=== PATIENT | male | born 1975 | race Caucasian/White ===

== ENCOUNTER 2020-08-24 18:48 | Inpatient (IN) | payer SELFPAY ==
[~2020-08-24] VITALS: Ht 175.3 cm; Wt 167.8 kg
[2020-08-24 19:55] LABS: BASOPHIL % 0.4 % (0.2-1.5); PLATELET COUNT 259 x10^3mcL (152-348); RED CELL DISTRIBUTION WIDTH 14.5 % (12.1-16.2)
[2020-08-24 20:25] LABS: CALCIUM 7.5 mg/dL (8.5-10.1); CARBON DIOXIDE 25.8 mmol/L (21-32); CREATININE SERUM 1.5 mg/dL (0.7-1.3); POTASSIUM SERUM 3.9 mmol/L (3.5-5.1)
[2020-08-24 20:31] LABS: BILIRUBIN TOTAL 0.6 mg/dL (0.20-1.00); TOTAL PROTEIN, SERUM 7.2 g/dL (6.4-8.2)
[2020-08-24 20:34] LABS: ALBUMIN 2.6 g/dL (3.4-5.0)
[2020-08-24 21:16] LABS: microscopic required? YES; urine erythrocyte TRACE (NEGATIVE)
[2020-08-25 09:38] LABS: C REACTIVE PROTEIN 15.8 mg/dL (<=0.9)
[2020-08-25 12:58] LABS: PHOSPHOROUS 2.4 mg/dL (2.5-4.9)
[2020-08-25 13:08] LABS: CHOLESTEROL/HDL RATIO 3.8
[2020-08-25 13:38] LABS: FREE T4 1.11 ng/dL (0.76-1.46)
[2020-08-25 14:14] LABS: T3 TOTAL 1.96 ng/mL
[2020-08-25 15:55] VITALS: BP 122/79
[2020-08-25 16:46] VITALS: BP 136/74
[2020-08-25 21:45] VITALS: BP 126/69
[2020-08-26 06:01] VITALS: BP 118/77
[2020-08-26 07:06] LABS: BASOPHIL % 0.4 % (0.2-1.5); PLATELET COUNT 302 x10^3mcL (152-348)
[2020-08-26 07:09] VITALS: Ht 175.3 cm; Wt 167.8 kg
[2020-08-26 07:13] LABS: RED CELL DISTRIBUTION WIDTH 14.6 % (12.1-16.2)
[2020-08-26 07:20] LABS: CALCIUM 8.1 mg/dL (8.5-10.1); CARBON DIOXIDE 27.2 mmol/L (21-32); CREATININE SERUM 1.8 mg/dL (0.7-1.3); POTASSIUM SERUM 4.6 mmol/L (3.5-5.1)
[2020-08-26 09:27] VITALS: BP 132/85
[2020-08-26 12:01] VITALS: BP 134/66
[2020-08-26 17:28] VITALS: BP 103/67
[2020-08-26 21:02] VITALS: BP 138/70
[2020-08-27 04:56] VITALS: BP 136/73
[2020-08-27 07:58] LABS: BASOPHIL % 0.2 % (0.2-1.5); PLATELET COUNT 276 x10^3mcL (152-348); RED CELL DISTRIBUTION WIDTH 14.5 % (12.1-16.2)
[2020-08-27 08:20] LABS: C REACTIVE PROTEIN 3.2 mg/dL (<=0.9); CALCIUM 8.2 mg/dL (8.5-10.1); CARBON DIOXIDE 27.5 mmol/L (21-32); CREATININE SERUM 1.6 mg/dL (0.7-1.3)
[2020-08-27 08:33] VITALS: BP 119/50
[2020-08-27 11:54] VITALS: BP 126/75
[2020-08-27 17:18] VITALS: BP 154/87
[2020-08-27 20:52] VITALS: BP 149/65
[2020-08-28 05:24] VITALS: BP 132/78
[2020-08-28 08:20] LABS: BASOPHIL % 0.7 % (0.2-1.5); PLATELET COUNT 247 x10^3mcL (152-348); RED CELL DISTRIBUTION WIDTH 14.4 % (12.1-16.2)
[2020-08-28 08:30] VITALS: BP 156/77
[2020-08-28 08:45] LABS: CALCIUM 8.8 mg/dL (8.5-10.1); CARBON DIOXIDE 27.6 mmol/L (21-32); CREATININE SERUM 1.6 mg/dL (0.7-1.3); POTASSIUM SERUM 4.4 mmol/L (3.5-5.1)
[2020-08-28] MEDS ORDERED: VENTOLIN H0.09 MG/A1 INH (09:59)
[2020-08-28] MEDS ORDERED: ZINC SULFATE220 MG PO (09:59)
[2020-08-28] MEDS ORDERED: GLIPIZIDE XL5 M2 PO (10:00)
[2020-08-28] MEDS ORDERED: DECADRON4 MG PO (10:00)
[2020-08-28] MEDS ORDERED: VITC PO (10:00)
[2020-08-28] MEDS ORDERED: D-10001 TAB PO (10:00)
[2020-08-28] MEDS ORDERED: ACCU-CHEK1 EAC2 MC (10:01)
[2020-08-28 12:49] VITALS: BP 147/80
== END 2020-08-28 13:20 | disposition home or self-care (01) | DRG 177 ==
LOC: ED 18:48 → DU 08-25 11:22
PROVIDERS: Emergency Medicine; Internal Medicine; ADMIT Family Medicine; ATTEND Family Medicine
DX: U07.1 COVID-19 (principal); J12.89 Other viral pneumonia; J96.01 Acute respiratory failure with hypoxia; Z68.42 Body mass index [BMI] 45.0-49.9, adult; E66.2 Morbid (severe) obesity with alveolar hypoventilation; N18.9 Chronic kidney disease, unspecified; E11.22 Type 2 diabetes mellitus with diabetic chronic kidney disease; Z87.442 Personal history of urinary calculi; Z79.899 Other long term (current) drug therapy
CPT/HCPCS: 36600; 82962; 83880; 84439; 85378; 87804; G0378; J0456; J0696; J1100; J1650; J3490; J7060; Q0162; U0003

== ENCOUNTER 2020-08-28 13:32 | Emergency (ER) | payer SELFPAY ==
[~2020-08-28] VITALS: Ht 188 cm; Wt 168.7 kg
[~2020-08-28 13:32] MED LIST: ACCU-CHEK1 EAC2 MC; D-10001 TAB PO; DECADRON4 MG PO; GLIPIZIDE XL5 M2 PO; VENTOLIN H0.09 MG/A1 INH; VITC PO; ZINC SULFATE220 MG PO
[2020-08-28 13:37] VITALS: Ht 188 cm; Wt 168.7 kg
== END 2020-08-28 20:20 ==
LOC: ED 13:32
DX: U07.1 COVID-19 (principal); I46.8 Cardiac arrest due to other underlying condition; I10 Essential (primary) hypertension; E11.9 Type 2 diabetes mellitus without complications
CPT/HCPCS: 82962